=== PATIENT | female | born 1955 | race Caucasian/White ===

== ENCOUNTER 2023-12-14 09:15 | Emergency (ER) | payer OTHER, MEDICARE ==
--- NOTE | 2023-12-14 11:33 | RAD REPORT ---
EXAM DESCRIPTION: CTAbdomen Pelvis W Contrast - 12/14/2023 11:12 am CLINICAL HISTORY: Abdominal pain. ABD PAIN COMPARISON: No comparisons TECHNIQUE: Biphasic CT imaging of the abdomen and pelvis was performed with 100 ml non-ionic IV cont rast. All CT scans are performed using dose optimization technique as appropriate and may include automated exposure control or mA/KV adjustment according to patient size. FINDINGS: Mild linear atelectasis is present both lung bases.Cholecystectomy clips. The liver, spleen, pancreas, adrenal glands and kidneys are within normal limits. No bowel obstruction, free air, free fluid or abscess. Moderate fat containing the hernia. The append ix is normal. No evidence of significant lymphadenopathy. No suspicious bony findings. IMPRESSION: No acute intra-abdominal or pelvic finding.
[2023-12-14 11:34] LABS: Albumin 3.7 g/dL (3.4-5.0); Anion Gap 10.3 mEq/L (5.0-15.0); Globulin 3.6 g/dL (2.3-3.5); Potassium 4.3 mEq/L (3.5-5.1); Protein, Total 7.3 g/dL (6.4-8.2)
[2023-12-14 11:36] LABS: Specific Gravity 1.007 (1.005-1.030); Sqamous Epithelial <5 /HPF (None Seen); Urine Bacteria <20 /HPF (<20); Urine Bilirubin NEGATIVE (Negative); Urine Blood Negative (Negative); Urine Clarity Turbid (Clear); Urine Color Light-Yellow (Yellow); Urine Culture Reflex Order REFLEXED; Urine Glucose NEGATIVE (Negative); Urine Ketones NEGATIVE (Negative); Urine Microscopic Reflex YN ORDER UMIC; Urine Mucus Slight /HPF (None Seen); Urine Nitrite NEGATIVE (Negative); Urine Protein NEGATIVE (Negative); Urine Urobilinogen Normal (Normal); Urine WBC 20-50 /HPF (<5)
[2023-12-14 12:25] LABS: Absolute Basophils 0.1 K/uL (0-0.5); Absolute Eosinophils 0.2 K/uL (0-0.5); Absolute Lymphocytes (CBC) 1.5 K/uL (0.7-4.9); Absolute Monocytes 0.5 K/uL (0.1-1.3); Absolute Neutrophil 5.3 K/uL (1.8-8.0); Basophils % 1.2 % (0-1.3); Eosinophils % 2.1 % (0-4.4); Hematocrit 40.3 % (36.0-45.0); Hemoglobin 13.8 g/dL (12.0-15.0); Lymphocytes % 20.3 % (15.3-44.8); MCH 31.5 pg (27.0-35.0); MCHC 34.2 g/dL (32.0-36.0); MCV 91.9 fL (80-100); MPV 8.2 fL (7.6-11.3); Monocytes % 6.4 % (3.3-12.3); Nucleated Red Blood Cells % 0.1 % (0-0); Platelets 263 thou/uL (152-406); RBC Red Blood Cell Count 4.39 M/uL (3.86-4.86); Red Cell Distribution Width 13.5 % (12.1-15.2)
--- NOTE | 2023-12-14 12:37 | ER ---
Nurse's Notes [facility] Name: Lisa Arredondo Age: 68 yrs Sex: Female : 1955 Arrival Date: 12/14/2023 Time: 09:15 Bed 5 Private MD: Diagnosis: Abdominal pain, UTI Presentation: 12/13 09:36 Chief complaint: Patient states: "My stomach collapsed yesterday.". Coronavirus screen: hb At this time, the client does not indicate any symptoms associated with coronavirus-19. Ebola Screen: No symptoms or risks identified at this time. Initial Sepsis Screen: Does the patient meet any 2 criteria? No. Patient's initial sepsis screen is negative. Does the patient have a suspected source of infection? No. Patient's initial sepsis screen is negative. Risk Assessment: Do you want to hurt yourself or someone else? Patient reports no desire to harm self or others. Onset of symptoms was December 13, 2023. 09:36 Method Of Arrival: Wheelchair hb 09:36 Acuity: LEIGHA 3 hb Triage Assessment: 09:39 General: Appears in no apparent distress. Behavior is calm, cooperative. Pain: Denies hb pain. Neuro: Level of Consciousness is awake, alert, obeys commands, Oriented to person, place, time, situation. Cardiovascular: Patient's skin is warm and dry. Respiratory: Respiratory effort is even, unlabored, Respiratory pattern is regular, symmetrical. GI: Patient currently denies diarrhea, nausea, pain, vomiting. Historical: - Allergies: 09:37 PENICILLINS; hb - Home Meds: 09:37 aspirin 81 mg Oral cap 1 cap once daily [Active]; carvedilol 10 mg Oral three times a hb day [Active]; metformin 1 Oral tab 1 tab daily [Active]; Pepcid 20 mg Oral tab 1 tab once daily [Active]; memantine oral [Active]; olmesartan oral [Active]; - PMHx: 09:39 Hypertension; hb - PSHx: 09:37 Cholecystectomy; Hernia Repair; hb - Immunization history:: Adult Immunizations up to date. - Infectious Disease History:: Denies. - Social history:: Smoking status: Patient denies any tobacco usage or history of. Screenin:46 [facility] ED Fall Risk Assessment (Adult) History of falling in the last 3 months, ap3 including since admission Yes- fall prone (multiple falls) (3 pts) Confusion or Disorientation No (0 pts) Intoxicated or Sedated No (0 pts) Impaired Gait Yes (1 pt) Mobility Assist Device Used Yes (1 pt) Altered Elimination No (0 pt) Score/Fall Risk Level 3 or more points = High Risk Oriented to surroundings, Maintained a safe environment, Educated pt \\T\\ family on fall prevention, incl call for assistance when getting out of bed, Assessed \\T\\ reinforced patient's understanding of fall precautions, Provided non-skid footwear, Hourly rounding (assess needs \\T\\ fall precautionary measures) done, Used ambulatory aids as needed (educated on \\T\\ assisted with), Used gait belt as appropriate Implemented a Fall Risk Plan of Care, Apply high fall risk patient identification: yellow non skid footwear/ fall signage, Placed fall mat w/ non beveled edge next to bed, Activated bed/chair alarm, Remained w/in arm's length of patient and in sight while toileting, Offered frequent toileting (1:1 observation), Remained with patient while ambulating, Utilized family, sitter, or virtual lapeler as indicated. Abuse screen: Denies threats or abuse. Nutritional screening: No deficits noted. Tuberculosis screening: No symptoms or risk factors identified. Assessment: 12:47 GI: Abd is soft and non tender. ap3 Vital Signs: 09:36 BP 177 / 85; Pulse 71; Resp 17; Temp 98.3(O); Pulse Ox 96% on R/A; Weight 119.75 kg; hb Height 5 ft. 6 in. ; Pain 0/10; 12:19 Pulse 72; Pulse Ox 100% ; ap3 09:36 Body Mass Index 42.61 (119.75 kg, 167.64 cm) hb 09:36 Pain Scale: Adult hb ED Course: 09:21 Patient arrived in ED. mr 09:24 Yani Hopper MD is Attending Physician. sp3 09:37 Triage completed. hb 09:39 Leslie Burger, RN is Primary Nurse. ap3 09:39 Arm band placed on. hb 10:01 Client placed on continuous cardiac and pulse oximetry monitoring. NIBP monitoring jg11 applied. 10:01 Initial lab(s) drawn, by me, sent to lab. Urine collected: clean catch specimen, clear. jg11 Inserted saline lock: 22 gauge in left antecubital area, using aseptic technique. Blood collected. 10:57 Urinalysis w/ reflexes Sent. jg11 10:57 Lipase Sent. jg11 10:57 CMP Sent. jg11 10:57 CBC with Diff Sent. jg11 11:14 Abdomen In Process Unspecified. EDMS 12:46 No provider procedures requiring assistance completed. IV discontinued, intact, ap3 bleeding controlled, No redness/swelling at site. Pressure dressing applied. 12:47 Patient has correct armband on for positive identification. Bed in low position. Call ap3 light in reach. Side rails up X2. Adult w/ patient. Provided Education on: discharge instructions. Administered Medications: No medications were administered Medication: 12:47 VIS not applicable for this client. ap3 Outcome: 12:36 Discharge ordered by . sp3 12:46 Discharged to home via wheelchair, with family, ap3 12:46 Condition: good 12:46 Discharge instructions given to patient, family, Instructed on discharge instructions, follow up and referral plans. medication usage, Demonstrated understanding of instructions, follow-up care, medications, Prescriptions given X 1, 12:53 Patient left the ED. ap3 Signatures: Dispatcher [employer] EDIN Basilia Hodgson, Reg Reg mr Stacia Rebolledo RN RN hb Prokisch, Amanda, RN RN ap3 Yani Hopper MD MD sp3 Jorge Gonzalez jg11
--- NOTE | 2023-12-14 12:37 | EDPHYS ---
Physician Documentation [facility] Name: Lisa Arredondo Age: 68 yrs Sex: Female : 1955 Arrival Date: 12/14/2023 Time: 09:15 Bed 5 Private MD: ED Physician Yani Hopper HPI: 12/13 09:58 This 68 yrs old Female presents to ER via Wheelchair with complaints of Abdominal Pain. sp3 09:58 68-year-old female with history of hypertension status post cholecystectomy presents to sp3 the ED with periumbilical pain. Patient states she had a prior umbilical hernia which was repaired during her gallbladder procedure. Unknown whether mesh was used or not. She states that over the last 24 hours she has felt a "dip" in her abdomen periumbilical with pain radiating caudally towards her pelvis. She denies any other symptoms including fever, URI symptoms, neck pain, chest pain, shortness of breath, upper abdominal pain, vomiting, diarrhea, flank pain, or TAX COMPLIANCE OFFICER symptoms, or any other signs or symptoms on ROS at this time.. Historical: - Allergies: 09:37 PENICILLINS; hb - Home Meds: 09:37 aspirin 81 mg Oral cap 1 cap once daily [Active]; carvedilol 10 mg Oral three times a hb day [Active]; metformin 1 Oral tab 1 tab daily [Active]; Pepcid 20 mg Oral tab 1 tab once daily [Active]; memantine oral [Active]; olmesartan oral [Active]; - PMHx: 09:39 Hypertension; hb - PSHx: 09:37 Cholecystectomy; Hernia Repair; hb - Immunization history:: Adult Immunizations up to date. - Infectious Disease History:: Denies. - Social history:: Smoking status: Patient denies any tobacco usage or history of. ROS: 09:59 Constitutional: Negative for fever, chills, and weight loss, Eyes: Negative for injury, sp3 pain, redness, and discharge, ENT: Negative for injury, pain, and discharge, Neck: Negative for injury, pain, and swelling, Cardiovascular: Negative for chest pain, palpitations, and edema, Respiratory: Negative for shortness of breath, cough, wheezing, and pleuritic chest pain, Back: Negative for injury and pain, : Negative for injury, bleeding, discharge, and swelling, MS/Extremity: Negative for injury and deformity, Skin: Negative for injury, rash, and discoloration, Neuro: Negative for headache, weakness, numbness, tingling, and seizure, Psych: Negative for depression, anxiety, suicide ideation, homicidal ideation, and hallucinations, Allergy/Immunology: Negative for hives, rash, and allergies, Endocrine: Negative for neck swelling, polydipsia, polyuria, polyphagia, and marked weight changes, Hematologic/Lymphatic: Negative for swollen nodes, abnormal bleeding, and unusual bruising, 09:59 All other systems are negative, Exam: 09:59 Constitutional: This is a well developed, well nourished patient who is awake, alert, sp3 and in no acute distress. Head/Face: Normocephalic, atraumatic. Eyes: Pupils equal round and reactive to light, extra-ocular motions intact. Lids and lashes normal. Conjunctiva and sclera are non-icteric and not injected. Cornea within normal limits. Periorbital areas with no swelling, redness, or edema. ENT: Nares patent. No nasal discharge, no septal abnormalities noted. External auditory canals are clear. Oropharynx with no redness, swelling, or masses, exudates, or evidence of obstruction, uvula midline. Mucous membranes moist. Neck: Trachea midline, no thyromegaly or masses palpated, and no cervical lymphadenopathy. Supple, full range of motion without nuchal rigidity, or vertebral point tenderness. No Meningismus. Chest/axilla: Normal chest wall appearance and motion. Nontender with no deformity. No lesions are appreciated. Cardiovascular: Regular rate and rhythm with a normal S1 and S2. No gallops, murmurs, or rubs. Normal PMI, no JVD. No pulse deficits. Respiratory: Lungs have equal breath sounds bilaterally, clear to auscultation and percussion. No rales, rhonchi or wheezes noted. No increased work of breathing, no retractions or nasal flaring. Back: No spinal tenderness. No costovertebral tenderness. Full range of motion. Skin: Warm, dry with normal turgor. Normal color with no rashes, no lesions, and no evidence of cellulitis. MS/ Extremity: Pulses equal, no cyanosis. Neurovascular intact. Full, normal range of motion. Neuro: Awake and alert, GCS 15, oriented to person, place, time, and situation. Cranial nerves II-XII grossly intact. Motor strength 5/5 in all extremities. Sensory grossly intact. Cerebellar exam normal. Normal gait. Psych: Awake, alert, with orientation to person, place and time. Behavior, mood, and affect are within normal limits. 09:59 Abdomen/GI: Possible fascial defect just distal to the umbilicus with no palpable hernia. No peritoneal signs, rebound or guarding noted. Negative CVA tenderness and distal neurovascular exam is normal., Vital Signs: 09:36 BP 177 / 85; Pulse 71; Resp 17; Temp 98.3(O); Pulse Ox 96% on R/A; Weight 119.75 kg; hb Height 5 ft. 6 in. ; Pain 0/10; 12:19 Pulse 72; Pulse Ox 100% ; ap3 09:36 Body Mass Index 42.61 (119.75 kg, 167.64 cm) hb 09:36 Pain Scale: Adult hb MDM: 09:30 Patient medically screened. sp3 09:59 Data reviewed: vital signs, nurses notes, lab test result(s), radiologic studies. ED sp3 course: 68-year-old with periumbilical and lower abdominal pain. Differential diagnosis is broad and includes ventral hernia, umbilical hernia, other GI process, vascular process including AAA, among others. I am not highly suspicious for sepsis, shock, TAX COMPLIANCE OFFICER or etiology, cardiac etiology or any other concerning pathways at this time. Workup will include laboratory values, UA and CT scan of the abdomen pelvis with IV contrast. Pain is controlled at this time. We will keep patient n.p.o. and disposition is pending workup and patient course.. 12:35 ED course: Workup demonstrates no significant abnormality on laboratory values except sp3 for urinalysis which shows UTI. CT scan of the abdomen pelvis is without findings. Will treat with p.o. Levaquin and discharge patient home with follow-up to PCP.. 12/13 11:28 Order name: Comprehensive Metabolic Panel [facility] 12/13 11:28 Order name: Lipase [facility] 12/13 11:28 Order name: CBC with Automated Diff [facility] 12/13 11:38 Order name: Urinalysis w/ reflexes [facility] 12/13 11:39 Order name: Urine Culture [facility] 12/13 12:08 Order name: Comprehensive Metabolic Panel; Complete Time: 12:21 EDMS 12/13 12:08 Order name: Lipase; Complete Time: 12:21 EDMS 12/13 12:08 Order name: Urinalysis w/ reflexes; Complete Time: 12:21 EDMS 12/13 12:25 Order name: CBC with Automated Diff; Complete Time: 12:27 EDMS 12/13 11:08 Order name: Abdomen EDMS 12/13 11:34 Order name: CT; Complete Time: 12:21 EDMS 12/13 09:39 Order name: IV Saline Lock; Complete Time: 10:57 sp3 12/13 09:39 Order name: Labs collected and sent; Complete Time: 10:57 sp3 Administered Medications: No medications were administered Disposition Summary: 12/14/23 12:36 Discharge Ordered Notes: Location: Home sp3 Condition: Stable sp3 Diagnosis - Abdominal pain, UTI sp3 Followup: sp3 - With: Private Physician - When: Upon discharge from the Emergency Department - Reason: Continuance of care Discharge Instructions: - Discharge Summary Sheet sp3 - Urinary Tract Infection, Adult sp3 Forms: - Medication Reconciliation Form sp3 - Antibiotic Education sp3 - Prescription Opioid Use sp3 - Patient Portal Instructions sp3 - Leadership Thank You Letter sp3 Prescriptions: - levofloxacin 500 mg Oral tablet - take 1 tablet ORAL route once daily for 7 days; 7 tablet; Refills: 0, Product sp3 Selection Permitted Signatures: Dispatcher [employer] Stacia Courtney, RN RN Yani Win MD MD sp3 Corrections: (The following items were deleted from the chart) 10:55 10:55 Abdomen Pelvis W Con+CT.RAD.BRZ ordered. [facility]
[2023-12-15 14:42] VITALS: BP 177/85; TEMP 98.3; O2SAT 100
== END 2023-12-14 12:53 | disposition home or self-care (01) ==
LOC: ER 09:15
DX: N39.0 Urinary tract infection, site not specified (principal); Z90.49 Acquired absence of other specified parts of digestive tract; I10 Essential (primary) hypertension; Z79.82 Long term (current) use of aspirin; Z88.0 Allergy status to penicillin
CPT/HCPCS: 87088; 85025; 81001; 87086; 36415; 83690; 80053; 74177; 99284; Q9967

== ENCOUNTER 2024-06-23 08:45 | Day surgery (SDC) | payer OTHER, MEDICARE ==
[2024-06-19 15:58] LABS: Absolute Basophils 0.1 K/uL (0-0.5); Absolute Eosinophils 0.3 K/uL (0-0.5); Absolute Lymphocytes (CBC) 2.1 K/uL (0.7-4.9); Absolute Monocytes 0.5 K/uL (0.1-1.3); Absolute Neutrophil 4.6 K/uL (1.8-8.0); Basophils % 1.1 % (0-1.3); Eosinophils % 3.7 % (0-4.4); Hematocrit 39.7 % (36.0-45.0); Hemoglobin 13.7 g/dL (12.0-15.0); Lymphocytes % 28.1 % (15.3-44.8); MCHC 34.6 g/dL (32.0-36.0); MCV 92.6 fL (80-100); MPV 8.2 fL (7.6-11.3); Monocytes % 6.2 % (3.3-12.3); Neutrophils % 60.9 % (41.7-73.7); Nucleated Red Blood Cells % 0.1 % (0-0); Platelets 244 thou/uL (152-406); RBC Red Blood Cell Count 4.29 M/uL (3.86-4.86); Red Cell Distribution Width 12.9 % (12.1-15.2)
[2024-06-19 16:04] LABS: Anion Gap 11.2 mEq/L (5.0-15.0); Potassium 4.2 mEq/L (3.5-5.1)
--- NOTE | 2024-06-19 23:51 | RAD REPORT ---
EXAMINATION: TWO VIEW CHEST XR CLINICAL INDICATION: Female, 69 years old. [facility] MA[facility] pre op for day surgery TECHNIQUE: 2 view radiographs of the chest were performed. COMPARISON: 01/31/2000 05/15/2022 FINDINGS: The lungs are well inflated and clear. Elevation of the right hemidiaphragm again seen. No pneumothor ax or sizable effusion. The heart is normal in size. Mediastinal contours are unremarkable. IMPRESSION: No acute or significant abnormalities.
--- NOTE | 2024-06-20 15:09 | EKG ---
Test Date: 2024-06-19 Test Time: 16:33:09 Actuarial Associate: SHANA MEASUREMENT RESULTS: Intervals: Rate: 68 MN: 264 QRSD: 62 QT: 350 QTc: 372 Sullivan: P: 19 MN: 264 QRS: 5 T: 58 INTERPRETIVE STATEMENTS: Sinus rhythm with 1st degree AV block Low voltage QRS Possible Anterolateral infarct, age undetermined Abnormal ECG Compared to ECG 05/15/2022 10:50:28 First degree AV block now present Low QRS voltage now present Myocardial infarct finding now present Left-axis deviation no longer present Electronically Signed On 06-20-24 15:07:06 ELECTRIC CAR OPERATOR by Job Lozano
[2024-06-23] MEDS ORDERED: propofoL 200 MG/20 ML VIAL IV ONE (09:20)
[2024-06-23] MEDS ORDERED: ROCURONIUM 50 MG/5 ML VIAL IV ONE (09:20)
[2024-06-23] MEDS ORDERED: ONDANSETRON 4 MG/2 ML VIAL ONE (09:20)
[2024-06-23] MEDS ORDERED: FENTANYL CITR 100 MCG/2 ML ONE (09:20)
[2024-06-23] MEDS ORDERED: MIDAZOLAM HCL 2 MG/2 ML INJ ONE (09:20)
[2024-06-23] MEDS ORDERED: LIDOCAINE 1% MPF 5 ML VIAL ONE (09:20)
[2024-06-23] MEDS: NA CHLORIDE 0.9% 1,000 ML ONE (09:35)
[2024-06-23] MEDS: HYDROCORTISONE SUC 100 MG INJ ONE (09:45)
[2024-06-23] MEDS ORDERED: EPHEDRINE SULF 50 MG/ML VIAL ONE (10:43)
[2024-06-23] MEDS: CIPROFLOXACIN 400mg IV 400 MG/200 ML BAG IV ONE (10:45)
[2024-06-23] MEDS ORDERED: SUGAMMADEX SODIUM 200 MG/2 ML VIAL IV ONE (12:05)
--- NOTE | 2024-06-23 12:13 | P.BOP ---
Preoperative diagnosis: incarcerated ventral hernia Postoperative diagnosis: multiple incarcerated ventral hernias Primary procedure: Laparoscopic repair of multiple x 2 incarcerated ventral hernias with mesh Secondary procedure: Lysis of adhesions Estimated blood loss: <30cc Specimen: henria sac and content Findings: supraumbilical ventral hernias x 2 Anesthesia: General Complications: None Transferred to: Recovery Room Condition: Good
[2024-06-23] MEDS: HYDROMORPHONE HCL 1 MG/ML INJ ONE (12:20)
[2024-06-23 13:30] VITALS: BP 147/65; TEMP 97.4; O2SAT 96
--- NOTE | 2024-07-08 00:19 | OP ---
Date of Procedure: 06/23/2024 Surgeon: García Del Rosario MD Preoperative Diagnosis: Incarcerated ventral hernias. Postoperative Diagnosis: Multiple incarcerated ventral hernias. Procedure: Laparoscopic repair of multiple x2 incarcerated ventral hernias with mesh and laparoscopi c lysis of adhesions. Estimated Blood Loss: Less than 30 cc. Specimen: Hernia sac and content. Findings: Supraumbilical ventral hernias x2. Intraabdominal adhesions that took half the case just to take care of. Anesthesia: General plus local. Complications: None. The mesh is a Ventralex large. Indication: This is a case of a female who came to us with a ventral pain. We feel lump. She was d iagnosed with hernia. She wants that excised. The benefits, alternatives, and risks of laparoscopic , possible open repair of ventral hernia explained which include, but not limited to infection, bleed ing, damage to adjacent structures, anesthesia complication, recurrence, AL, even . She also un derstands this may not relieve the symptoms. She might need more than one surgical intervention. Sh e also understand we may be using mesh in that region. So, pros and cons of mesh placement discussed with the patient and all questions answered to her satisfaction. We also advised the importance of losing weight and no heavy lifting. She signed the consent. Procedure In Detail: The patient was brought to the operating room, placed in supine position. Anes thesia was done without complication. Abdominal area was prepped and draped in sterile fashion. A t linn-out was call. An incision was made on the area near the hernia. Incision was carried down until we found the first hernia. We opened the hernia sac, found the fascial edges to be friable. Undern eath, we put our finger. We noticed this hernia just more cephalad to the previous one which had to be addressed, but there were many adhesions that it cannot be done this way, so I proceeded to clean the fascial edges, put Vicryl #1 in [id number] fashion multiple times and then put a Kristopher troc ar through it. This allowed me to obtain pneumoperitoneum and place a 5 mm trocar in multiple areas of the abdomen, left and right, and changed the camera to that area and then it gave me an idea with visualization of what we were doing in the middle, which is a bunch of adhesions attached to the abdo hector wall. So, using the LigaSure slowly, we removed lysis of adhesions. Took about half the case just doing that. Once we had the adhesions down with no enterotomies and no bleeding, I proceeded to visualize the abdomen and visualize the 2 defects. Through this incision. We extended a little bit . We were able to put new stitches under the second defect and removed the hernia sac, tied that and then trying to select the mesh to covered both places and that will be a large Ventralex mesh. This covered the defects, overlapped about 3 to 5 mm. Once we put the mesh through one of the port sites in the middle, I proceeded to pull the straps against the abdominal wall and secured that with Sorba Fix. Then the straps were removed and then we continued fixating to the anterior abdominal wall the mesh with the SorbaFix. The fascia edges were closed primarily making sure there is no intestines in between. We further fixated the mesh to the anterior abdominal wall until we had an air seal. At t hat moment, we checked the area of the lysis of adhesions, no bleeding, no enterotomies and then we p roceeded to deflate pneumoperitoneum under direct visualization, removed the trocars, closed the subc utaneous tissue with 3-0 chromic and the skin was approximated with gia. Sponge count and instru ment counts correct. The patient was sent to recovery in stable condition. Condition: Stable. Disposition: Home. Activity: As tolerated. No heavy lifting. Followup: In my office in 1 week. Call for appointment [phone]. Keep area dry for 48 hours, then may shower. May use abdominal binder while she is out of bed. Medications were called to her pharma cy. EFREM/SRI Voice ID: [id number] Report ID: [id number]
== END 2024-06-23 13:35 | disposition home or self-care (01) ==
LOC: OR 08:45
PROVIDERS: ATTEND Surgery
PROC: 0DNW4ZZ Release Peritoneum, Percutaneous Endoscopic Approach (ICD-10-PCS; 2024-06-23)
PROC: 0WUF4JZ Supplement Abdominal Wall with Synthetic Substitute, Percutaneous Endoscopic Approach (ICD-10-PCS; principal; 2024-06-23 10:50)
DX: K43.6 Other and unspecified ventral hernia with obstruction, without gangrene (principal); K66.0 Peritoneal adhesions (postprocedural) (postinfection)
CPT/HCPCS: 49594; 93005; 85025; 80048; 36415; 82947; 88302; 71046; 49329; J2704; J2003; J2250; J3010; J1171; J1720; J2405; J0744; J7030